=== PATIENT | male | born 1950 | race Caucasian/White ===

== ENCOUNTER → 2017-03-27 | Outpatient (CLI) | payer OTHER, MEDICARE ==
--- NOTE | 2017-03-27 11:25 | DIAGNOSTIC IMAGING REPORT ---
ULTRASOUND EXAM AAA SCREEN CLINICAL HISTORY: SCREENING FOR CARDIOVASCULAR DISORDER COMPARISON STUDY: None. FINDINGS: The proximal abdominal aorta measures 3.3 x 3.3 cm, mid aorta 2.5 x 2.2 cm, and distal aorta 2.0 x 2.0 cm. Bilateral iliac arteries are normal in caliber. 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 Electronically signed by: Joey Corbin M.D. 03/27/2017 11:24 AM Dictated Date/Time: 03/27/2017 11:23 AM
== END | disposition home or self-care (01) ==
LOC: C.ULTRBC 08:50
PROVIDERS: ATTEND Internal Medicine
DX: Z13.6 Encounter for screening for cardiovascular disorders (principal); I71.4 Abdominal aortic aneurysm, without rupture